=== PATIENT | female | born 1935 | race Caucasian/White ===

== ENCOUNTER 2020-12-15 20:10 | Emergency (ER) | payer BC, MEDICARE ==
[~2020-12-15] VITALS: Ht 154.9 cm; Wt 56.3 kg
--- NOTE | 2020-12-15 20:39 | PHYS DOC ---
Past History Past Medical History: Heart Disease, Kidney Stones, Other Additional Past Medical Histor: stage 4 kidney disease Past Surgical History: Pacemaker Alcohol Use: None General Adult EDM: Chief Complaint: URINARY FREQUENCY HPI: HPI: Patient is a 85-year-old female coming in for urinary frequency, urgency, and "stinging". Urine has been off in color but denies any change in smells or hematuria. Patient denies any back or abdominal pain. History is provided mostly by patient's daughter is patient has a history of dementia. Patient denies any history of urinary tract infections. Does have history significant for multiple large kidney stones requiring lithotripsy 9 months ago. No fevers or chills. No other complaints. Review of Systems: Review of Systems: All other systems within normal limits except for as noted in the HPI Allergies: Allergies: Allergies Coded Allergies Type Severity Reaction Last Updated Verified Sulfa (Sulfonamide Antibiotics) Allergy Severe 12/15/20 Yes Physical Exam: PE: Constitutional: Well developed, well nourished, no acute distress, non-toxic appearance. [] HENT: Normocephalic, atraumatic, bilateral external ears normal, nose normal. [] Eyes: PERRLA, conjunctiva normal, no discharge. [] Neck: No rigidity, supple, no stridor. [] Cardiovascular: Regular rate and rhythm, brisk cap refill [] Lungs & Thorax: Non labored symmetric respirations, no tachypnea or respiratory distress [] Abdomen: Soft, nondistended, no masses or tenderness to palpation. Skin: Warm, dry, no erythema, no rash. [] Back: Unremarkable, no CVA tenderness Extremities: No deformities, range of motion grossly intact, no lower extremity edema [] Neurologic: Alert and oriented X 3, no focal deficits noted. [] Psychologic: Affect normal, judgement normal, mood normal. [] Current Patient Data: Vital Signs: Vital Signs Date Time Temp Pulse Resp B/P (MAP) Pulse Ox O2 Delivery O2 Flow Rate FiO2 12/15/20 20:10 97.9 75 18 136/67 (90) 97 Room Air EKG: EKG: [] Radiology/Procedures: Radiology/Procedures: [] Heart Score: C/O Chest Pain: No Risk Factors: Risk Factors: DM, Current or recent (<one month) smoker, HTN, HLP, family history of CAD, obesity. Risk Scores: Score 0 - 3: 2.5% MACE over next 6 weeks - Discharge Home Score 4 - 6: 20.3% MACE over next 6 weeks - Admit for Clinical Observation Score 7 - 10: 72.7% MACE over next 6 weeks - Early Invasive Strategies Course & Med Decision Making: Course & Med Decision Making Urine tract infection, no signs ofsystemic complaints. Discussed return precautions. First dose of antibiotics given the emergency department Dragon Disclaimer: Julien Disclaimer: This electronic medical record was generated, in whole or in part, using a voice recognition dictation system. Departure Departure: Impression: Primary Impression: Urinary tract infection Disposition: HOME / SELF CARE / HOMELESS Condition: STABLE Referrals: PCP,NO (PCP) Patient Instructions: Urinary Tract Infection Additional Instructions: Take Keflex 10 mL by mouth every 8 hours, for total 5 days. Scripts Cephalexin (CEPHALEXIN) 250 Mg/5 Ml Susp.recon 10 ML PO TID for antibiotic for 2 Days, #60 ML Prov: DOC MASON MD 12/15/20 DOC MASON MD Dec 15, 2020 20:39
[2020-12-15 21:01] LABS: BILIRUBIN,URINE NEG (NEG); CLARITY,URINE TURBID; COLOR,URINE YELLOW; GLUCOSE,URINE NEG (NEG); NITRITE,URINE NEG (NEG); RBC,URINE TNTC /HPF (0-2); UROBILINOGEN,URINE 0.2 mg/dL (0.2 mg/dL)
[2020-12-15 21:02] LABS: AMORPHOUS SEDIMENT,UR PRESENT /HPF; BACTERIA,URINE MANY /HPF (0-FEW); SQUAMOUS EPITHELIAL CELL,UR MANY /LPF; WBC,URINE TNTC /HPF (0-4)
[2020-12-15] MEDS ORDERED: CEPHALEXIN 250 MG CAPSULE PO ONE (21:15)
[2020-12-15] MEDS ORDERED: CEPHALEXN 250MG/5ML ORAL.SUSP 100ML BOTTLE STARTER PACK. ONE (21:16)
[2020-12-15 21:30] VITALS: BP 118/68
[2020-12-15] MEDS ORDERED: CEPHALEXN 250MG/5ML ORAL.SUSP 100ML BOTTLE STARTER PACK. PO ONE (21:30)
[2020-12-15] MEDS ORDERED: CEPH250S2 PO (21:35)
== END 2020-12-15 21:40 | disposition home or self-care (01) ==
LOC: ER 20:10
DX: N39.0 Urinary tract infection, site not specified (principal); Z88.2 Allergy status to sulfonamides; Z87.442 Personal history of urinary calculi
CPT/HCPCS: 81001; 87086; 99283-25